=== PATIENT | male | born 1940 | race Caucasian/White ===

== ENCOUNTER 2018-04-09 09:58 | Emergency (ER) | payer OTHER ==
[2018-04-09 11:01] LABS: Absolute Lymphocytes (CBC) 0.9 K/uL (0.7-4.9); Absolute Monocytes 1.4 K/uL (0.1-1.3); Absolute Neutrophil 11.4 K/uL (1.8-8.0); Basophils % 0.4 % (0-1.3); Eosinophils % 0.2 % (0-4.4); Hematocrit 48.7 % (39.6-49.0); Lymphocytes % 6.4 % (15.3-44.8); MPV 9.8 fL (7.6-11.3); Monocytes % 10.1 % (3.3-12.3); RBC Red Blood Cell Count 5.46 M/uL (4.33-5.43)
[2018-04-09 11:18] LABS: Potassium 3.7 mmol/L (3.5-5.1)
[2018-04-09 11:23] LABS: Urine Bacteria <20 /HPF (NONE SEEN); Urine Culture Reflex Order NOT NEEDED; Urine Mucus 1+ /HPF (NONE SEEN)
--- NOTE | 2018-04-09 12:32 | RAD REPORT ---
EXAM DESCRIPTION: CT - Stone Protocol - 04/09/2018 12:16 pm CLINICAL HISTORY: Rectal pain, dysuria COMPARISON: None. TECHNIQUE: Axial 5 mm thick images were obtained without oral or IV contrast. The [id number] span s the entirety of the system partially obscuring uppermost abdomen and lung bases. All CT scans are performed using dose optimization technique as appropriate and may include automated exposure control or mA/KV adjustment according to patient size. FINDINGS: No hydronephrosis is present and no obstructing ureteral calculi. Patient has multiple marcos ateral round low-density masses of the kidneys. These are most likely cysts but not fully characteriz ed on a noncontrast study. Isodense masses and pyelonephritis are not excluded. Patient has a 5 pam meter nonobstructing calyx calcification upper pole left kidney and 2 adjacent 2 millimeter calcifica tions upper pole calyx of the right kidney. No urinary bladder suspicious finding. A bladder divertic ulum is seen along the right lateral margin. No significant adrenal finding. Imaged portions of the liver, spleen and pancreas show no suspicious findings on non-contrast imaging . Cholecystectomy clips are present. No biliary tree dilatation. No gastric dilatation or wall thickening. No small bowel abnormality seen. Moderately large stool vol ume present in the right side colon. No appendicitis findings. Patient has a large left inguinal kiran ia that contains the proximal portion of the sigmoid colon. No wall thickening or edema. No acute fin ding within the hernia. A small fat only right inguinal hernia is present. Sigmoid is tortuous and re dundant. Distal rectum is grossly abnormal. Lumen of the distal rectum is poorly defined. There is a 5- 6 centimeter area of masslike density present. There is congestion and edema in the presacral soft tissues. While this is potentially a very pronounced proctitis, finding is concerning for perianal/d istal rectum carcinoma. Rectal findings abut the prostate gland but no definitive invasion seen. Pros otto size overall is normal. No free air, pneumatosis or free fluid. No bulky lymphadenopathy. Patient has a few small sub centime ter periaortic lymph nodes. No abnormal pelvic lymphadenopathy. No hernia, mass or bulky lymphadenopathy noted. No free air, free fluid or inflammatory stranding. No significant bony abnormality. IMPRESSION: Large bulky 5-6 centimeter soft tissue mass density along the posterior distal rectum. 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 Large left inguinal hernia containing proximal portion of the sigmoid colon. No active process seen. Fat only left inguinal hernia is seen. Isodense masses and pyelonephritis are not excluded on stone protocol technique.
--- NOTE | 2018-04-09 14:02 | ER ---
Nurse's Notes [facility] Name: Shukri Cruz Age: 77 yrs Sex: Male : 1940 Arrival Date: 04/09/2018 Time: 10:02 Bed 24 Private MD: Arsalan Zayas Diagnosis: Neoplasm of uncertain behavior of rectum Presentation: 04/09 10:08 Presenting complaint: Pain in rectum and blood in urine x 2 days. Transition of care: hb patient was not received from another setting of care. Onset of symptoms was April 07, 2018. Risk Assessment: Do you want to hurt yourself or someone else? Patient reports no desire to harm self or others. Initial Sepsis Screen: Does the patient meet any 2 criteria? No. Patient's initial sepsis screen is negative. Does the patient have a suspected source of infection? No. Patient's initial sepsis screen is negative. Care prior to arrival: None. 10:08 Method Of Arrival: Wheelchair hb 10:08 Acuity: JEN 3 hb Historical: - Allergies: 10:09 No Known Allergies; hb - Immunization history:: Adult Immunizations up to date. - Social history:: Smoking status: Patient uses tobacco products, cigars. - Ebola Screening: : No symptoms or risks identified at this time. Screenin:44 Abuse screen: Denies threats or abuse. Denies injuries from another. Nutritional aj screening: No deficits noted. Tuberculosis screening: No symptoms or risk factors identified. Fall Risk None identified. Assessment: 10:24 General: Appears in no apparent distress. comfortable, Behavior is calm, cooperative, aj appropriate for age. Pain: Complains of pain in anus. Neuro: Level of Consciousness is awake, alert, obeys commands, Oriented to person, place, time, situation, Appropriate for age. Respiratory: Airway is patent Respiratory effort is even, unlabored, Respiratory pattern is regular, symmetrical. GI: Abdomen is non-distended, Bowel sounds present X 4 quads. Abd is soft and non tender X 4 quads. Reports pain at rectum. : Reports inability to void. Derm: Skin is intact, is healthy with good turgor, Skin is pink, warm \T\ dry. normal. 14:18 Reassessment: Patient appears in no apparent distress at this time. No changes from aj previously documented assessment. Patient and/or family updated on plan of care and expected duration. Pain level reassessed. Patient is alert, oriented x 3, equal unlabored respirations, skin warm/dry/pink. Vital Signs: 10:08 BP 109 / 93; Pulse 83; Resp 18; Temp 98.3; Pulse Ox 100% on R/A; Pain 10/10; hb 12:21 BP 131 / 65; Pulse 84; Resp 19; Pulse Ox 99% on R/A; aj 14:18 BP 128 / 76; Pulse 81; Resp 16; Pulse Ox 99% on R/A; aj ED Course: 10:02 Patient arrived in ED. mr 10:02 Arsalan Zayas MD is Private Physician. mr 10:08 Triage completed. hb 10:08 Arm band placed on. hb 10:10 Karishma Navarro, RN is Primary Nurse. aj 10:11 Gary Heredia MD is Attending Physician. gs 10:44 Patient has correct armband on for positive identification. Placed in gown. Bed in low aj position. 10:44 Bladder scan completed. 288 ml in bladder before catheter. Straight cath inserted, aj using sterile technique, 16 Fr. Specimen obtained. Returned maida urine. Patient tolerated well. Inserted saline lock: 20 gauge in right antecubital area, using aseptic technique. Blood collected. 12:[address] via wheelchair. vr 12:07 CT completed. Patient tolerated procedure well. Patient moved to CT via wheelchair. vr Patient moved back from CT. 12:17 CT Stone Protocol In Process Unspecified. EDCO 13:[address] Cordova for Dr. Heredia for patient consulation. eb 14:01 Jason Tan MD is Referral Physician. gs 14:19 No provider procedures requiring assistance completed. Patient did not have IV access aj during this emergency room visit. Administered Medications: No medications were administered Output: 10:44 Urine: 400ml (Straight Cath); Total: 400ml. aj Outcome: 14:01 Discharge ordered by . gs 14:18 Discharged to home ambulatory. aj 14:18 Condition: good 14:18 Discharge instructions given to patient, Instructed on discharge instructions, follow up and referral plans. medication usage, Demonstrated understanding of instructions, follow-up care, medications, Prescriptions given X 2. 14:20 Patient left the ED. aj Signatures: Dispatcher [employer] EDMS Karishma Navarro RN RN vishnu Thomson, Perla mr Osmar, Silvana Ruiz, Gary Pickard RN, MD MD gs Botello, Elizabeth eb
--- NOTE | 2018-04-09 14:02 | EDPHYS ---
Physician Documentation [facility] Name: Shukri Cruz Age: 77 yrs Sex: Male : 1940 Arrival Date: 04/09/2018 Time: 10:02 Bed 24 Private MD: Arsalan Zayas ED Physician Gary Heredia HPI: 04/09 14:16 This 77 yrs old Male presents to ER via Wheelchair with complaints of Rectal gs Pain, BLOOD IN URINE. 14:16 The patient presents to the emergency department with pain in the rectal area, that is gs moderate. Onset: The symptoms/episode began/occurred 2 week(s) ago. Modifying factors: The symptoms are aggravated by bowel movement, sitting position. Associate signs and symptoms: Pertinent positives: hematuria. Associate signs and symptoms: Pertinent positives:. The patient has not experienced similar symptoms in the past. Historical: - Allergies: 10:09 No Known Allergies; hb - Immunization history:: Adult Immunizations up to date. - Social history:: Smoking status: Patient uses tobacco products, cigars. - Ebola Screening: : No symptoms or risks identified at this time. ROS: 14:16 : Positive for small amounts, hematuria. gs 14:16 All other systems are negative. Exam: 14:16 Head/Face: Normocephalic, atraumatic. Eyes: Pupils equal round and reactive to light, gs extra-ocular motions intact. Lids and lashes normal. Conjunctiva and sclera are non-icteric and not injected. Cornea within normal limits. Periorbital areas with no swelling, redness, or edema. ENT: Nares patent. No nasal discharge, no septal abnormalities noted. Tympanic membranes are normal and external auditory canals are clear. Oropharynx with no redness, swelling, or masses, exudates, or evidence of obstruction, uvula midline. Mucous membranes moist. Neck: Trachea midline, no thyromegaly or masses palpated, and no cervical lymphadenopathy. Supple, full range of motion without nuchal rigidity, or vertebral point tenderness. No Meningismus. Chest/axilla: Normal chest wall appearance and motion. Nontender with no deformity. No lesions are appreciated. Cardiovascular: Regular rate and rhythm with a normal S1 and S2. No gallops, murmurs, or rubs. Normal PMI, no JVD. No pulse deficits. Respiratory: Lungs have equal breath sounds bilaterally, clear to auscultation and percussion. No rales, rhonchi or wheezes noted. No increased work of breathing, no retractions or nasal flaring. 14:16 Back: No spinal tenderness. No costovertebral tenderness. Full range of motion. Skin: Warm, dry with normal turgor. Normal color with no rashes, no lesions, and no evidence of cellulitis. MS/ Extremity: Pulses equal, no cyanosis. Neurovascular intact. Full, normal range of motion. Neuro: Awake and alert, GCS 15, oriented to person, place, time, and situation. Cranial nerves II-XII grossly intact. Motor strength 5/5 in all extremities. Sensory grossly intact. Cerebellar exam normal. Normal gait. 14:16 Constitutional: The patient appears alert, awake. 14:16 Abdomen/GI: Palpation: abdomen is soft and non-tender, in all quadrants. 14:16 Abdomen/GI: Rectal exam: hemorrhoid(s), external, without bleeding, without inflammation, without thrombosis, without pain, mass, not palpated, prostate firm with mild tenderness. Vital Signs: 10:08 BP 109 / 93; Pulse 83; Resp 18; Temp 98.3; Pulse Ox 100% on R/A; Pain 10/10; hb 12:21 BP 131 / 65; Pulse 84; Resp 19; Pulse Ox 99% on R/A; aj 14:18 BP 128 / 76; Pulse 81; Resp 16; Pulse Ox 99% on R/A; aj MDM: 10:22 Patient medically screened. 14:16 Differential diagnosis: hemorrhoids, cystitis, urinary retention, diverticular disease. Data reviewed: vital signs, nurses notes. Counseling: I had a detailed discussion with the patient and/or guardian regarding: the historical points, exam findings, and any diagnostic results supporting the discharge/admit diagnosis, lab results, radiology results, the need for outpatient follow up. Physician consultation: Jason Tan MD and will see patient later today. 14:22 ED course: bladder scan had 280, bladder not full on exam, on borderline for dukes, gs have discussed possibility of a dukes in the near future. 04/09 10:12 Order name: Urine Microscopic Only; Complete Time: 11:42 04/09 10:23 Order name: CBC with Diff; Complete Time: 11:42 04/09 10:12 Order name: Urine Dipstick-Ancillary (obtain specimen); Complete Time: 11:17 gs 04/09 10:23 Order name: Basic Metabolic Panel; Complete Time: 11:42 04/09 10:59 Order name: Urine Dipstick--Ancillary (enter results) eb 04/09 11:43 Order name: CT Stone Protocol; Complete Time: 12:41 04/09 10:23 Order name: Bladder Scanner; Complete Time: 11:17 Administered Medications: No medications were administered Disposition: 04/09/18 14:01 Discharged to Home. Impression: Neoplasm of uncertain behavior of rectum. - Condition is Stable. - Discharge Instructions: Colonoscopy. - Prescriptions for Flagyl 500 mg Oral Tablet - take 1 tablet by ORAL route every 12 hours for 7 days; 14 tablet. Keflex 500 mg Oral Capsule - take 1 capsule by ORAL route every 12 hours for 7 days; 14 capsule. - Medication Reconciliation Form, Thank You Letter, Antibiotic Education, Prescription Opioid Use form. - Follow up: Jason Tan MD; When: 1 - 2 days; Reason: Re-evaluation by your physician. Signatures: Dispatcher [employer] Karishma Padilla RN RN aj Baxter, Heather, RN RN hb Starr, Gregory, MD MD Corrections: (The following items were deleted from the chart) 14:20 14:01 04/09/2018 14:01 Discharged to Home. Impression: Neoplasm of uncertain behavior aj of rectum. Condition is Stable. Forms are Medication Reconciliation Form, Thank You Letter, Antibiotic Education, Prescription Opioid Use. Follow up: Jason Tan; When: 1 - 2 days; Reason: Re-evaluation by your physician.
[2018-04-09 14:13] LABS: Urine Blood TRACE (NEG); Urine Glucose TRACE (NEG); Urine Protein 2+ (NEG); Urine Specific Gravity 1.025 (1.005-1.030); Urine pH 5.5 (5.0-7.0)
== END 2018-04-09 14:20 | disposition home or self-care (01) ==
LOC: ER 09:58
DX: D37.5 Neoplasm of uncertain behavior of rectum (principal); Z72.0 Tobacco use
CPT/HCPCS: 36415; 51702; 74176; 76377; 80048; 81003; 81015; 85025; 99284